=== PATIENT | male | born 1945 | race Caucasian/White ===

== ENCOUNTER → 2017-02-24 | Outpatient (CLI) | payer MEDICARE, BC ==
--- NOTE | 2017-02-24 10:51 | RAD ---
Bilateral feet, 6 views, 02/24/2017: History: Heel pain No fracture or dislocation is identified. There are mild degenerative changes at scattered interphalangeal joints and the first MTP joints bilaterally. No significant inferior calcaneal spurring is seen. Moderate arterial calcifications are present. IMPRESSION: 1. Mild scattered degenerative changes. 2. No acute bony abnormality is detected.
== END | disposition home or self-care (01) ==
LOC: DXRADRC 10:06
PROVIDERS: ATTEND Podiatrist Foot & Ankle Surgery
DX: M19.072 Primary osteoarthritis, left ankle and foot (principal); M19.071 Primary osteoarthritis, right ankle and foot
CPT/HCPCS: 73630

== ENCOUNTER 2020-03-30 15:14 | Emergency (ER) | payer BC, MEDICARE, OTHER ==
[~2020-03-30] VITALS: Ht 180.3 cm; Wt 89.5 kg
[2020-03-30 15:35] VITALS: BP 108/71
[2020-03-30 16:56] LABS: BASO % 1 % (0-3); EOS # 0.1 x10^3/uL (0.0-0.7); EOS % 4 % (0-3); HEMATOCRIT 36.4 % (39.0-53.0); HEMOGLOBIN 12.6 g/dL (13.0-17.5); LYMPH # 0.3 x10^3/uL (1.0-4.8); LYMPH % 9 % (24-48); MEAN CORPUSCULAR HEMOGLOBIN 36 pg (25-35); MEAN CORPUSCULAR HGB CONC 35 g/dL (31-37); MEAN CORPUSCULAR VOLUME 104 fL (79-100); MONO # 0.8 x10^3/uL (0.0-1.1); MONO % 22 % (0-9); NEUT # 2.2 x10^3uL (1.8-7.7); NEUT % 64 % (31-73); PLATELET COUNT 83 x10^3/uL (140-400); RED BLOOD COUNT 3.49 x10^6/uL (4.30-5.70); RED CELL DISTRIBUTION WIDTH 14.2 % (11.5-14.5); WHITE BLOOD COUNT 3.5 x10^3/uL (4.0-11.0)
[2020-03-30 17:04] LABS: CALCIUM 8.1 mg/dL (8.5-10.1); CREATININE 1.6 mg/dL (0.7-1.3); GFR 42.1; POTASSIUM 3.9 mmol/L (3.5-5.1)
[2020-03-30] MEDS ORDERED: OXYMETAZOLINE 0.05% NASAL SPRAY 30ML BOTTLE. NS ONE ×2 (17:07→17:15)
[2020-03-30 17:10] LABS: ALBUMIN 3.6 g/dL (3.4-5.0); ALBUMIN/GLOBULIN RATIO 1.1 (1.0-1.7); MAGNESIUM 1.7 mg/dL (1.8-2.4); TOTAL BILIRUBIN 0.5 mg/dL (0.2-1.0)
--- NOTE | 2020-03-30 17:17 | PHYS DOC ---
Past History Past Medical History: Hypertension (MIKI STONE DO) Past Medical History: Pneumonia (GÓMEZ NIELSEN MD) Past Surgical History: Other Additional Past Surgical Histo: stents, right knee sx (MIKI STONE DO) Past Surgical History: Knee Replacement (GÓMEZ NIELSEN MD) Alcohol Use: None (MIKI STONE DO) General Adult EDM: Chief Complaint: FEVER HPI: HPI: Patient is a 75-year-old male who presented to ER today for evaluation of fever and chills for the last 3 days. Patient also complained of body ache and dry cough. Patient denies any chest pain, no trouble breathing, no headache, no abdominal pain, no nausea vomiting. Patient has been taking Tylenol Motrin at home to control her temperature but he continues have a fever. Patient denies being exposed to anybody who tested positive COVID-19. Patient has history hypertension and history of coronary disease, denies history of diabetes. Is a smoker. (MIKI STONE DO) Review of Systems: Review of Systems: Constitutional: Positive for fever and chill Eyes: Denies change in visual acuity HENT: Denies nasal congestion or sore throat Respiratory: Positive for cough cough , no shortness of breath Cardiovascular: Denies chest pain or edema GI: Denies abdominal pain, nausea, vomiting, bloody stools or diarrhea : Denies dysuria Musculoskeletal: Positive for body ache and joint pain Integument: Denies rash Neurologic: Denies headache, focal weakness or sensory changes Endocrine: Denies polyuria or polydipsia Lymphatic: Denies swollen glands Psychiatric: Denies depression or anxiety (MIKI STONE DO) Heart Score: Risk Factors: Risk Factors: DM, Current or recent (<one month) smoker, HTN, HLP, family history of CAD, obesity. Risk Scores: Score 0 - 3: 2.5% MACE over next 6 weeks - Discharge Home Score 4 - 6: 20.3% MACE over next 6 weeks - Admit for Clinical Observation Score 7 - 10: 72.7% MACE over next 6 weeks - Early Invasive Strategies (MIKI STONE DO) Current Medications: Current Meds: Current Medications Medications (Trade) Dose Ordered Sig/Irving Start Time Stop Time Status Last Admin Dose Admin Oxymetazoline HCl (Afrin) 100 spray STK-MED ONCE 03/30/20 17:07 7/11/20 17:07 DC (MIKI STONE DO) Allergies: Allergies: Allergies Coded Allergies Type Severity Reaction Last Updated Verified amoxicillin Allergy Unknown 03/30/20 Yes (MIKI STONE DO) Physical Exam: PE: Constitutional: Well developed, well nourished, no acute distress, non-toxic appearance. [] HENT: Normocephalic, atraumatic, bilateral external ears normal, oropharynx moist, no oral exudates, nose normal. [] Eyes: PERRLA, EOMI, conjunctiva normal, no discharge. [] Neck: Normal range of motion, no tenderness, supple, no stridor. [] Cardiovascular:Heart rate regular rhythm, no murmur [] Lungs & Thorax: Bilateral breath sounds clear to auscultation [] Abdomen: Bowel sounds normal, soft, no tenderness, no masses, no pulsatile mass es. [] Skin: Warm, dry, no erythema, no rash. [] Back: No tenderness, no CVA tenderness. [] Extremities: No tenderness, no cyanosis, no clubbing, ROM intact, no edema. [] Neurologic: Alert and oriented X 3, normal motor function, normal sensory function, no focal deficits noted. [] Psychologic: Affect normal, judgement normal, mood normal. [] (MIKI STONE DO) Current Patient Data: Labs: Laboratory Tests Test 03/30/20 16:40 White Blood Count 3.5 x10^3/uL (4.0-11.0) L Red Blood Count 3.49 x10^6/uL (4.30-5.70) L Hemoglobin 12.6 g/dL (13.0-17.5) L Hematocrit 36.4 % (39.0-53.0) L Mean Corpuscular Volume 104 fL (79-100) H Mean Corpuscular Hemoglobin 36 pg (25-35) H Mean Corpuscular Hemoglobin Concent 35 g/dL (31-37) Red Cell Distribution Width 14.2 % (11.5-14.5) Platelet Count 83 x10^3/uL (140-400) L Neutrophils (%) (Auto) 64 % (31-73) Lymphocytes (%) (Auto) 9 % (24-48) L Monocytes (%) (Auto) 22 % (0-9) H Eosinophils (%) (Auto) 4 % (0-3) H Basophils (%) (Auto) 1 % (0-3) Neutrophils # (Auto) 2.2 x10^3uL (1.8-7.7) Lymphocytes # (Auto) 0.3 x10^3/uL (1.0-4.8) L Monocytes # (Auto) 0.8 x10^3/uL (0.0-1.1) Eosinophils # (Auto) 0.1 x10^3/uL (0.0-0.7) Basophils # (Auto) 0.0 x10^3/uL (0.0-0.2) Sodium Level 138 mmol/L (136-145) Potassium Level 3.9 mmol/L (3.5-5.1) Chloride Level 101 mmol/L (98-107) Carbon Dioxide Level 29 mmol/L (21-32) Anion Gap 8 (6-14) Blood Urea Nitrogen 17 mg/dL (8-26) Creatinine 1.6 mg/dL (0.7-1.3) H Estimated GFR (Cockcroft-Gault) 42.1 BUN/Creatinine Ratio 11 (6-20) Glucose Level 128 mg/dL (70-99) H Lactic Acid Level 1.0 mmol/L (0.4-2.0) Calcium Level 8.1 mg/dL (8.5-10.1) L Magnesium Level 1.7 mg/dL (1.8-2.4) L Total Bilirubin 0.5 mg/dL (0.2-1.0) Aspartate Amino Transferase (AST) 34 U/L (15-37) Alanine Aminotransferase (ALT) 36 U/L (16-63) Alkaline Phosphatase 60 U/L (46-116) Total Protein 7.0 g/dL (6.4-8.2) Albumin 3.6 g/dL (3.4-5.0) Albumin/Globulin Ratio 1.1 (1.0-1.7) Vital Signs: Vital Signs Date Time Temp Pulse Resp B/P (MAP) Pulse Ox O2 Delivery O2 Flow Rate FiO2 03/30/20 15:35 99.2 84 18 108/71 (83) 95 (MIKI STONE DO) EKG: EKG: [] (MIKI STONE DO) Radiology/Procedures: Radiology/Procedures: [] (MIKI STONE DO) Radiology/Procedures: [address], [place] [address] IMAGING REPORT Signed PATIENT: EVETTE DINEROOUNT: [id number] : 1945 LOCATION: ER AGE: 75 SEX: M EXAM STATUS: REG ER ORD. PHYSICIAN: MIKI STONE DO REASON: COUGH, FEVER FOR 3 DAYS PROCEDURE: CHEST AP ONLY EXAM: CHEST AP ONLY INDICATION: Reason: COUGH, FEVER FOR 3 DAYS / Spl. Instructions: / History: . TECHNIQUE: Single view COMPARISON: None FINDINGS: The heart size is normal. The great vessels appear unremarkable. There is no hilar or mediastinal mass. Lungs show hazy reticular opacity at the left lung base. There is no pleural effusion or pneumothorax. There are no significant osseous abnormalities. IMPRESSION: Hazy reticular opacity in the left lung base, suspicious for pneumonia. Electronically signed by: Juan Carlos Montano MD (03/30/2020 6:05 PM) [facility] [place] DICTATED AND SIGNED BY: JUAN CARLOS MONTANO MD DATE: 03/30/201804 CC: LANRE GRAHAM MD; MIKI STONE DO ~ (GÓMEZ NIELSEN MD) Course & Med Decision Making: Course & Med Decision Making Pertinent Labs and Imaging studies reviewed. (See chart for details) [] (MIKI STONE DO) Course & Med Decision Making See Dr. Stone note for details. Pt. take a Zithromax 250 a day for 5 days. Patient get adequate rest. Patient self isolate. When out must wear a mask covering nose and mouth. Reviewed with patient his previous CT findings which showed infiltrate/scarring in same location in 2007. Explained patient this may be persistent scarring or other pathology. After completing a course of antibiotics would get a CT with contrast to for further define area of infiltrate/scarring left lower lobe. Patient take Tylenol ibuprofen for fever and discomfort. Patient push fluids. Will treat with Zithromax in the case that this may be atypical outpatient pneumonia. However suspect this is more of a viral presentation due to the low white count. Patient follow-up pending COVID testing. Patient to have Dr. Smith review ED work-up and labs. Patient return if any concerns. Patient to use MDI 2 puffs 4 times a day. Return if any significant changes in symptoms. Consider home Oxygen Sat. finger monitor. Explained to pt he is in a high risk group for severe illness with COVID infection. Must monitor closely. ( Currently pt. sat 98-100 % on room air. , pulse rates in 80's/) Impression: 1. History of fever 2. Left lower lobe infiltrate/pneumonia/scaring ( Also present on CT of 2007) 3. Viral syndrome 4. Low white count 3.5 with 15 Bands 5. Anemia 12.6 hemoglobin with macrocytic hyperchromic indices and thrombocytopenia 6. Elevated Creat. 1.6 (GÓMEZ NIELSEN MD) Dragon Disclaimer: Dragon Disclaimer: This electronic medical record was generated, in whole or in part, using a voice recognition dictation system. (MIKI STONE DO) Departure Departure: Impression: Primary Impression: Fever Condition: STABLE Referrals: LANRE GRAHAM MD (PCP) Scripts Azithromycin (ZITHROMAX) 250 Mg Tablet 250 MG PO DAILY for ANTI-BIOTIC for 5 Days, #5 TAB 0 Refills Prov: GÓMEZ NIELSEN MD 03/30/20 Justification of Admission: Justification of Admission: Justification of Admission Dx: N/A (MIKI STONE DO) Justification of Admission Dx: N/A (GÓMEZ NIELSEN MD) Dragon Disclaimer This chart was dictated in whole or in part using Voice Recognition software in a busy, high-work load, and often noisy Emergency Department environment. It may contain unintended and wholly unrecognized errors or omissions. (GÓMEZ NIELSEN MD) Dragon Disclaimer This chart was dictated in whole or in part using Voice Recognition software in a busy, high-work load, and often noisy Emergency Department environment. It may contain unintended and wholly unrecognized errors or omissions. (GÓMEZ NIELSEN MD) MIKI STONE DO Mar 30, 2020 17:17 GÓMEZ NIELSEN MD Mar 30, 2020 18:23
[2020-03-30 17:45] LABS: % BANDS 15 % (0-9); % EOS 4 % (0-5); % LYMPHS 7 % (24-48); % MONOS 17 % (0-10); % SEGS 57 % (35-66); PLT ESTIMATE DECREASED (ADEQUATE)
[2020-03-30 17:46] LABS: POLYCHROMASIA SLIGHT
[2020-03-30 18:05] LABS: BACTERIA,URINE FEW /HPF (0-FEW); BILIRUBIN,URINE NEG (NEG); CLARITY,URINE HAZY; COLOR,URINE AMBER; GLUCOSE,URINE NEG (NEG); NITRITE,URINE NEG (NEG); RBC,URINE >40 /HPF (0-2); SQUAMOUS EPITHELIAL CELL,UR OCC /LPF; UROBILINOGEN,URINE 0.2 mg/dL (0.2 mg/dL)
--- NOTE | 2020-03-30 18:08 | RAD ---
EXAM: CHEST AP ONLY INDICATION: Reason: COUGH, FEVER FOR 3 DAYS / Spl. Instructions: / History: . TECHNIQUE: Single view COMPARISON: None FINDINGS: The heart size is normal. The great vessels appear unremarkable. There is no hilar or mediastinal mass. Lungs show hazy reticular opacity at the left lung base. There is no pleural effusion or pneumothorax. There are no significant osseous abnormalities. IMPRESSION: Hazy reticular opacity in the left lung base, suspicious for pneumonia. Electronically signed by: Francisco Montano MD (03/30/2020 6:05 PM) [facility] [place]
[2020-03-30] MEDS ORDERED: ALBUTEROL SULFATE 8GM INHALER. INH ONE (18:30)
[2020-03-30] MEDS ORDERED: AZIT250T PO (18:34)
[2020-03-30] MEDS ORDERED: AZITHROMYCIN 250 MG TABLET. PO ONE (19:00)
== END 2020-03-30 18:48 | disposition home or self-care (01) ==
LOC: ER 15:14
DX: R50.9 Fever, unspecified (principal); Z20.828 Contact with and (suspected) exposure to other viral communicable diseases; D72.829 Elevated white blood cell count, unspecified; D64.9 Anemia, unspecified; R94.4 Abnormal results of kidney function studies; I10 Essential (primary) hypertension; Z88.1 Allergy status to other antibiotic agents
CPT/HCPCS: 36415; 71045; 80053; 81001; 83605; 83735; 85007; 85025; 85610; 85730; 87040; 99284; J7613; U0003

== ENCOUNTER 2020-04-02 13:42 | Inpatient (IN) | payer MEDICARE ==
[~2020-04-02] VITALS: Ht 180.3 cm; Wt 90.7 kg
[~2020-04-02 13:42] MED LIST: AZIT250T PO
[2020-04-02] MEDS ORDERED: 0.9 % SODIUM CHLORIDE 10 ML DISP.SYRIN. IV PRN (14:15)
[2020-04-02 14:43] LABS: BASO % 0 % (0-3); EOS # 0.2 x10^3/uL (0.0-0.7); EOS % 2 % (0-3); HEMATOCRIT 34.8 % (39.0-53.0); HEMOGLOBIN 11.8 g/dL (13.0-17.5); LYMPH # 0.5 x10^3/uL (1.0-4.8); LYMPH % 5 % (24-48); MEAN CORPUSCULAR HEMOGLOBIN 36 pg (25-35); MEAN CORPUSCULAR HGB CONC 34 g/dL (31-37); MEAN CORPUSCULAR VOLUME 105 fL (79-100); MONO # 1.5 x10^3/uL (0.0-1.1); MONO % 16 % (0-9); NEUT # 7.2 x10^3uL (1.8-7.7); NEUT % 77 % (31-73); PLATELET COUNT 103 x10^3/uL (140-400); RED BLOOD COUNT 3.33 x10^6/uL (4.30-5.70); RED CELL DISTRIBUTION WIDTH 14.3 % (11.5-14.5); WHITE BLOOD COUNT 9.3 x10^3/uL (4.0-11.0)
[2020-04-02] MEDS: IV NORMAL SALINE 1,000ML 2,250 ML IV SCH ×3 (14:45→19:57)
--- NOTE | 2020-04-02 14:45 | PHYS DOC ---
Past History Past Medical History: CAD, Diabetes, Hypertension Past Surgical History: Other Additional Past Surgical Histo: cardiac stents Alcohol Use: Occasionally Adult General Chief Complaint Chief Complaint: SHORTNESS OF BREATH HPI HPI Patient is a 75 year old male who presents with complaint of shortness of breath. The patient notes that he has been having worsening shortness of breath over the past 5 days. He was seen in the emergency department on March 30, 2020. His work-up showed evidence of a left lower lobe pneumonia. Patient underwent COVID testing at that time and was found to be negative. He states despite home treatment with antibiotic and inhaler he is having worsening symptoms. States that he also is having tightness to the chest and difficulty breathing with mild exertion. Cough is been nonproductive. He has thus come back to the emergency department because of his worsening symptoms. Denies vomiting or diarrhea. Is feeling significant fatigue and increased work of breathing currently. Review of Systems Review of Systems Constitutional: Fever, chills, fatigue [] Eyes: Denies change in visual acuity, redness, or eye pain [] HENT: Denies nasal congestion or sore throat [] Respiratory: Cough, chest tightness, shortness of breath [] Cardiovascular: Intermittent chest pain [] GI: Denies abdominal pain, nausea, vomiting, bloody stools or diarrhea [] : Denies dysuria or hematuria [] Musculoskeletal: Denies back pain or joint pain [] Integument: Denies rash or skin lesions [] Neurologic: Denies headache, focal weakness or sensory changes [] All other systems were reviewed and found to be within normal limits, except as documented in this note. Current Medications Current Medications Current Medications Medications (Trade) Dose Ordered Sig/Irving Start Time Stop Time Status Last Admin Dose Admin Sodium Chloride 2,250 ml @ 750 mls/hr Q3H 04/02/20 14:08 Sodium Chloride (Normal Saline Flush) 10 ml QSHIFT PRN 04/02/20 14:15 Allergies Allergies Allergies Coded Allergies Type Severity Reaction Last Updated Verified amoxicillin Allergy Unknown 04/02/20 Yes Physical Exam Physical Exam Constitutional: Alert, afebrile, appears in moderate respiratory distress. [] HENT: Normocephalic, atraumatic, bilateral external ears normal, oropharynx moist, no oral exudates, nose normal. [] Eyes: PERRLA, EOMI, conjunctiva normal, no discharge. [] Neck: Normal range of motion, no tenderness, supple, no stridor. [] Cardiovascular: Tachycardia, regular rhythm, no murmur [] Lungs & Thorax: Mildly decreased air movement bilaterally, rhonchi bilaterally [] Abdomen: Bowel sounds normal, soft, no tenderness, no masses, no pulsatile masses. [] Skin: Warm, dry, no erythema, no rash. [] Back: No tenderness, no CVA tenderness. [] Extremities: No tenderness, no cyanosis, no clubbing, ROM intact, no edema. [] Neurologic: Alert and oriented X 3, normal motor function, normal sensory function, no focal deficits noted. [] Current Patient Data Vital Signs Vital Signs Date Time Temp Pulse Resp B/P (MAP) Pulse Ox O2 Delivery O2 Flow Rate FiO2 04/02/20 13:55 99.4 105 28 107/63 (78) 94 Room Air Lab Results Laboratory Tests Test 04/02/20 14:15 04/02/20 15:30 White Blood Count 9.3 x10^3/uL Red Blood Count 3.33 x10^6/uL Hemoglobin 11.8 g/dL Hematocrit 34.8 % Mean Corpuscular Volume 105 fL Mean Corpuscular Hemoglobin 36 pg Mean Corpuscular Hemoglobin Concent 34 g/dL Red Cell Distribution Width 14.3 % Platelet Count 103 x10^3/uL Neutrophils (%) (Auto) 77 % Lymphocytes (%) (Auto) 5 % Monocytes (%) (Auto) 16 % Eosinophils (%) (Auto) 2 % Basophils (%) (Auto) 0 % Neutrophils # (Auto) 7.2 x10^3uL Lymphocytes # (Auto) 0.5 x10^3/uL Monocytes # (Auto) 1.5 x10^3/uL Eosinophils # (Auto) 0.2 x10^3/uL Basophils # (Auto) 0.0 x10^3/uL Platelet Estimate Pending D-Dimer ([place]) 2.31 mg/L Sodium Level 137 mmol/L Potassium Level 3.4 mmol/L Chloride Level 101 mmol/L Carbon Dioxide Level 25 mmol/L Anion Gap 11 Blood Urea Nitrogen 21 mg/dL Creatinine 1.7 mg/dL Estimated GFR (Cockcroft-Gault) 39.3 BUN/Creatinine Ratio 12 Glucose Level 264 mg/dL Lactic Acid Level 1.9 mmol/L Calcium Level 8.0 mg/dL Total Bilirubin 0.5 mg/dL Aspartate Amino Transf (AST/SGOT) 30 U/L Alanine Aminotransferase (ALT/SGPT) 42 U/L Alkaline Phosphatase 72 U/L Troponin I Quantitative < 0.017 ng/mL Total Protein 6.2 g/dL Albumin 3.1 g/dL Albumin/Globulin Ratio 1.0 Urine Collection Type Void Urine Color Mar[place]i Urine Clarity Cloudy Urine pH 5.0 Urine Specific [place] 1.025 Urine Protein 100 mg/dl Urine Glucose (UA) 100 mg/dL Urine Ketones (Stick) Trace mg/dL Urine Blood Large Urine Nitrite Neg Urine Bilirubin Neg Urine Urobilinogen Dipstick 0.2 mg/dL Urine Leukocyte Esterase Neg Urine RBC 11-20 /HPF Urine WBC 1-4 /HPF Urine Bacteria Few /HPF Urine Hyaline Casts Few /HPF Urine Mucus Slight /LPF Urine Yeast Present /HPF Current Medications Medications (Trade) Dose Ordered Sig/Irving Route PRN Reason Start Time Stop Time Status Last Admin Dose Admin Sodium Chloride (Normal Saline Flush) 10 ml QSHIFT PRN IV AFTER MEDS AND BLOOD DRAWS 04/02/20 14:15 Sodium Chloride 2,250 ml @ 750 mls/hr Q3H IV 04/02/20 14:08 04/02/20 14:45 Ceftriaxone Sodium 1 gm/ Sodium Chloride 50 ml @ 100 mls/hr 1X ONCE IV 04/02/20 16:15 04/02/20 16:44 UNV Levofloxacin/ Dextrose 150 ml @ 100 mls/hr 1X ONCE IV 04/02/20 16:15 04/02/20 17:44 UNV Methylprednisolone Sodium Succinate (SOLU-Medrol 125MG VIAL) 125 mg 1X ONCE IV 04/02/20 16:15 04/02/20 16:16 UNV EKG EKG Interpreted by me: Heart rate 81, sinus rhythm, frequent PACs, leftward axis, no acute ST/T wave abnormalities present [] Radiology/Procedures Radiology/Procedures [address] [address] IMAGING REPORT Signed PATIENT: EVETTE DINERO WACCOUNT: [id number] : 1945 LOCATION: ER AGE: 75 SEX: M EXAM STATUS: REG ER ORD. PHYSICIAN: ALCIDES JAMES MD REASON: shortness of breath PROCEDURE: PORTABLE CHEST 1V PORTABLE CHEST 1V History: Reason: shortness of breath / Spl. Instructions: / History: Comparison: March 30, 2020 Findings: Increased patchy left mid and basilar opacities. No pleural effusion. No pneumothorax. Normal heart size. Impression: 1. Increased patchy left mid and basilar opacities, may represent atelectasis and/or developing consolidations. If persistent clinical concern, PA and lateral view the chest can better assess. Electronically signed by: Uri Medrano DO (04/02/2020 2:49 PM) [id number] DICTATED AND SIGNED BY: URI MEDRANO DO DATE: 04/02/20 1449 CC: ALCIDES JAMES MD; LANRE GRAHAM MD ~ [] Course & Med Decision Making Course & Med Decision Making Pertinent Labs and Imaging studies reviewed. (See chart for details) IV access was obtained and patient was started on IV fluids. Chest x-ray shows interval worsening of haziness representing possible worsening consolidation in the left lower lobe. I believe that this is consistent with a worsening community-acquired pneumonia. The patient was found to have an elevated d-dimer level. This is likely an acute reactant to the patient's worsening infection. At this time we are unable to perform a CT angiogram due to the patient's elevated creatinine level. If necessary, the patient can have a VQ scan performed to further evaluate this if necessary. To the patient's continued shortness of breath, as well as failure of outpatient treatment, the patient will need admission to the hospital for further care. I spoke with richelle Tamayo, who is agreed to accept care patient in hospital. [] Dragon Disclaimer Dragon Disclaimer This electronic medical record was generated, in whole or in part, using a voice recognition dictation system. Departure Departure: Impression: Primary Impression: Community acquired bacterial pneumonia Additional Impressions: Sepsis Acute renal insufficiency Hyperglycemia Elevated d-dimer Disposition: HOME/RESIDENCE PRIOR TO ADM Condition: STABLE Referrals: LANRE GRAHAM MD (PCP) Justification of Admission: Justification of Admission: Justification of Admission Dx: N/A Problem Qualifiers Additional Impressions: Sepsis Sepsis type: sepsis due to unspecified organism Sepsis acute organ dysfunction status: unspecified Qualified Codes: A41.9 - Sepsis, unspecified organism ALCIDES JAMES MD Apr 02, 2020 14:45
[2020-04-02 14:49] LABS: CREATININE 1.7 mg/dL (0.7-1.3); GFR 39.3; POTASSIUM 3.4 mmol/L (3.5-5.1)
--- NOTE | 2020-04-02 14:52 | RAD ---
PORTABLE CHEST 1V History: Reason: shortness of breath / Spl. Instructions: / History: Comparison: March 30, 2020 Findings: Increased patchy left mid and basilar opacities. No pleural effusion. No pneumothorax. Normal heart size. Impression: 1. Increased patchy left mid and basilar opacities, may represent atelectasis and/or developing consolidations. If persistent clinical concern, PA and lateral view the chest can better assess. Electronically signed by: Uri Medrano DO (04/02/2020 2:49 PM) [id number]
[2020-04-02 15:03] LABS: ALBUMIN 3.1 g/dL (3.4-5.0); TOTAL BILIRUBIN 0.5 mg/dL (0.2-1.0); TOTAL PROTEIN 6.2 g/dL (6.4-8.2)
--- NOTE | 2020-04-02 15:40 | EKG ---
[address] [address] Test Date: 2020-04-02 Test Time: 16:28:45 Pat Name: EVETTE DINERO Department: Room: Gender: M Television Presenter: : 1945 Requested By: ALCIDES JAMES Order Number: [id number] Reading MD: Measurements Intervals Dana Rate: 81 P: 35 NV: 166 QRS: -6 QRSD: 90 T: 18 QT: 366 QTc: 426 Interpretive Statements SINUS RHYTHM ATRIAL PREMATURE COMPLEX(ES) LEFTWARD AXIS OTHERWISE NORMAL ECG RI6.02 Compared to ECG 04/02/2020 16:10:36 Left-axis deviation now present Sinus tachycardia no longer present
[2020-04-02] MEDS ORDERED: methylPREDNISolone SOD SUCC PF 125 MG/2 ML VIAL. IV ONE (16:15)
[2020-04-02 16:16] LABS: BACTERIA,URINE FEW /HPF (0-FEW); BILIRUBIN,URINE NEG (NEG); CLARITY,URINE CLOUDY; COLOR,URINE AMBER; GLUCOSE,URINE 100 mg/dL (NEG); NITRITE,URINE NEG (NEG); UROBILINOGEN,URINE 0.2 mg/dL (0.2 mg/dL)
[2020-04-02 16:17] LABS: HYALINE CASTS, URINE FEW /HPF; YEAST,URINE PRESENT /HPF
[2020-04-02] MEDS ORDERED: methylPREDNISolone SOD SUCC PF 125 MG/2 ML VIAL. ONE (16:25)
[2020-04-02] MEDS ORDERED: IV NORMAL SALINE 50ML 50 ML ONE (16:25)
[2020-04-02] MEDS ORDERED: cefTRIAXone SODIUM 1 GM VIAL ONE (16:25)
[2020-04-02] MEDS ORDERED: ONDANSETRON PF 4 MG/2 ML VIAL. IVP PRN (16:30)
[2020-04-02] MEDS ORDERED: ACETAMINOPHEN 325 MG TABLET PO PRN (16:30)
[2020-04-02 18:14] LABS: % BANDS 9 % (0-9); % LYMPHS 8 % (24-48); % MONOS 19 % (0-10); % SEGS 64 % (35-66); PLT ESTIMATE DECREASED (ADEQUATE)
[2020-04-02 19:09] VITALS: BP 102/62
[2020-04-02] MEDS: IV NORMAL SALINE 1,000ML 1,000 ML IV SCH (19:55)
[2020-04-02] MEDS ORDERED: ALBUTEROL SULFATE 2.5 MG/3 ML NEBU. NEB SCH (20:00)
[2020-04-02] MEDS ORDERED: PRAV80TA2 PO (20:05)
[2020-04-02] MEDS ORDERED: ASPI325T8 PO (20:05)
[2020-04-02] MEDS ORDERED: ENAL20TA PO (20:05)
[2020-04-02] MEDS ORDERED: MULT-505 PO (20:05)
[2020-04-02] MEDS ORDERED: METO-239 PO (20:05)
[2020-04-02] MEDS ORDERED: MESA800T9 PO (20:05)
[2020-04-02] MEDS ORDERED: ALBUTEROL SULFATE 8GM INHALER. INH PRN (21:00)
[2020-04-02] MEDS: MESALAMINE 400 MG CAP.DRTAB. PO SCH (21:02)
[2020-04-02] MEDS: methylPREDNISolone SOD SUCC PF 125 MG/2 ML VIAL. IV SCH (21:03)
[2020-04-02] MEDS: LACTOBACILLUS RHAMNOSUS GG 1 CAPSULE. PO SCH (21:03)
[2020-04-02 21:23] VITALS: BP 101/70
[2020-04-02 21:46] VITALS: BP 99/68
--- NOTE | 2020-04-02 22:27 | HP ---
ADMIT DATE: 04/02/2020 ATTENDING PHYSICIAN: Dr. Boudreaux. CHIEF COMPLAINT: Shortness of breath. HISTORY OF PRESENT ILLNESS: The patient is a very pleasant 75-year-old gentleman, retired now, who has had shortness of breath for the last 5 days. This past Wednesday, 4 days ago, he was in the Emergency Room Department. He had evidence of a left lower lobe pneumonia. He underwent COVID testing at that time, was found to be coronavirus negative. He was sent home with Zithromax orally and an inhaler. He is not any better. He is still wheezing. He has exertional dyspnea, tightness in the chest and difficulty breathing. He states it is a burning sensation that starts anteriorly and radiates to his back. Cough has been nonproductive. He came back to the Emergency Room. He has not been febrile. He is a little bit clammy. He has not had any chills. A repeat chest x-ray today showed a slightly worsening in consolidation with infiltrate in the left lower lobe. 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 He was given IV Levaquin and Rocephin and a dose of steroids, which showed marked improvement. He will be admitted then with community-acquired pneumonia, non-COVID related, refractory to oral antibiotics. PAST MEDICAL HISTORY: Significant for coronary artery disease; in 2007, he had a catheterization and resulted in 2 cardiac stents. He has essential hypertension and diet-controlled diabetes mellitus. ALLERGIES: He has allergies AMOXICILLIN. MEDICATIONS: Currently, he was taking the Zithromax prescribed this past Wednesday. SOCIAL HISTORY: He is a nonsmoker. FAMILY HISTORY: Father of complications of emphysema at age 70. Mom of heart disease, she was 88. SOCIAL HISTORY: He is and lives with his . He is retired from the cement factory. REVIEW OF SYSTEMS: Significant for the dyspnea with minimal exertion. He has had some pleuritic type chest pain. He has had low-grade fevers, some sweats. No hemoptysis. He denied any nausea, vomiting, diarrhea, or chest pain. All other systems reviewed and turned to be negative. PHYSICAL EXAMINATION: GENERAL: When I saw the patient, this is a pleasant gentleman who was alert and oriented. INITIAL VITAL SIGNS: Showed a blood pressure of 109/71; his pulse was 85 and regular, respiratory rate 22, mildly labored; temperature 99.5 degrees Fahrenheit. Room air saturation 96% on room air. HEENT: Head is without trauma. Pupils are reactive. Sclerae nonicteric. The oropharynx is clear. NECK: Supple, no bruits identified. LUNGS: Diminished breath sounds at the bases with minimal rhonchi. CARDIOVASCULAR: Showed regular heart tones. No obvious gallops. Peripheral pulses are palpable and full. ABDOMEN: Soft, scaphoid, nontender, no organomegaly. Bowel sounds are hypoactive. EXTREMITIES: Showed no cyanosis or edema. SKIN: Somewhat clammy. NEUROLOGIC: Speech is fluent. Focally intact. No deficits. PERTINENT LABORATORY STUDIES: His hemoglobin today is 11.8 g/dL, white count is 9300, platelets are at 103,000. Nonfasting blood sugar 264 mg/dL. Sodium 137, potassium 3.4 mEq, creatinine is 1.7 mg/dL. Chest x-ray as noted. ASSESSMENT: 1. A 75-year-old gentleman with left lower lobe pneumonia, refractory to outpatient care. 2. He has silicosis related to his employment for those many years. 3. Pleurisy. 4. Type 2 diabetes. 5. Hypertension, currently normotensive. 6. Coronary artery disease with previous stents. PLAN: 1. Admit to the ICU. 2. He had a repeat COVID swab pending and he is still under COVID precautions. 3. Intravenous Levaquin with Rocephin. 4. Methylprednisolone to help with symptoms. 5. Nebulizer therapy. 6. Diabetic diet as tolerated. 7. Monitor blood sugars. JERRELL BOUDREAUX MD DR: RIVERA/deacon JOB#: [id number] / [id number] Kym Taylor
[2020-04-02 22:42] VITALS: BP 97/68
[2020-04-02 23:41] VITALS: BP 95/64
[2020-04-03] VITALS (10 sets, daily range): BP systolic 97–124; BP diastolic 62–80
[2020-04-03] MEDS: IV NORMAL SALINE 1,000ML 1,000 ML IV SCH ×2 (03:36→08:28)
[2020-04-03] MEDS: methylPREDNISolone SOD SUCC PF 125 MG/2 ML VIAL. IV SCH ×3 (05:39→21:03)
[2020-04-03] MEDS ORDERED: BUDESONIDE 0.5 MG/2 ML NEBU NEB SCH (09:15)
[2020-04-03] MEDS ORDERED: FLUTICASONE/VILANTEROL 100/25 INHALER. INH SCH (10:00)
[2020-04-03] MEDS ORDERED: METOPROLOL SUCC 24HR ER 25 MG TAB.ER.24H. PO SCH (10:00)
[2020-04-03] MEDS: LISINOPRIL 20 MG TABLET PO SCH ×2 (10:00→21:03)
[2020-04-03] MEDS: LISINOPRIL 5 MG TABLET. PO SCH ×2 (10:00→21:03)
[2020-04-03] MEDS ORDERED: BUDESONIDE 0.5 MG/2 ML NEBU ONE (10:07)
[2020-04-03] MEDS: MESALAMINE 400 MG CAP.DRTAB. PO SCH ×4 (10:11→21:00)
[2020-04-03] MEDS: LACTOBACILLUS RHAMNOSUS GG 1 CAPSULE. PO SCH ×2 (10:11→21:03)
[2020-04-03] MEDS: ATORVASTATIN CALCIUM 20 MG TABLET PO SCH (10:11)
[2020-04-03] MEDS: ASPIRIN 325 MG TABLET PO SCH (10:11)
[2020-04-03] MEDS: MULTIVITAMIN with MINERAL TABLET. PO SCH (10:11)
--- NOTE | 2020-04-03 10:21 | RAD ---
CT CHEST WO CONTRAST Indication: Shortness of air Technique: Noncontrast CT imaging was performed of the chest, multiplanar reconstruction images submitted. One or more of the following individualized dose reduction techniques were utilized for this examination: 1. Automated exposure control 2. Adjustment of the mA and/or kV according to patient size 3. Use of iterative reconstruction technique. Comparison: June 19, 2008 Findings: There is motion degradation. There is moderate to severe centrilobular emphysema. There is trace left pleural fluid near the base. There is coronary calcification. There is no pericardial fluid or pneumothorax. There is some linear atelectasis or fibrotic change of the lingula. There is also some patchy bilateral lower lobe atelectasis/infiltrate. The major airways are patent. Stomach is distended. Tubular ascending thoracic aorta is somewhat ectatic about 3.8 cm. There is borderline enlarged precarinal node about 1 cm short axis dimension, previously about 0.7 cm. IMPRESSION: 1. There is patchy bilateral lower lobe atelectasis/infiltrate, also lingular atelectasis or fibrotic change. There is emphysema. There is trace left pleural fluid. 2. There is coronary calcification. Tubular ascending thoracic aorta is somewhat ectatic about 3.8 cm. 3. Stomach is distended. Electronically signed by: Shola Xavier MD (04/03/2020 10:18 AM) [place] [id number]
[2020-04-03] MEDS: BUDESONIDE 0.5 MG/2 ML NEBU NEB SCH (19:51)
--- NOTE | 2020-04-03 20:41 | PN ---
DATE: 04/03/2020 SUBJECTIVE: The patient is sitting comfortably in his chair, in no apparent distress. He is generally feeling much better. He said he has received treatment this morning and apparently he was treated with steroids and Pulmicort by nebulizer and felt much improved. He feels that his symptoms have dramatically improved compared to yesterday. PHYSICAL EXAMINATION: GENERAL: When I examined him, he looked well and was clearly in no apparent respiratory distress. No pallor, jaundice, cyanosis or thyromegaly. No jugular venous distention. No limb edema. VITAL SIGNS: Her heart rate was 81, blood pressure was 111/70, temperature 97.4, respiratory rate was 15 and oxygen saturation was 95%. HEAD, EYES, EARS, NOSE AND THROAT: Normocephalic, atraumatic. NECK: Supple. HEART: Showed normal first and second heart sounds. No gallop or murmur. CHEST: Shows central trachea, equally reduced expansion, reduced air entry, vesicular sounds. I could not really appreciate any crepitation or rhonchi. ABDOMEN: Distended, soft, nontender. NEUROLOGIC: He is awake, alert, responding appropriately. All cranial nerves intact. He moves extremities without difficulty. He ambulates without assistance or assistive devices. His intake and output were incompletely recorded. LABORATORY DATA: Showed a white cell count of 9300, hemoglobin 11.8, hematocrit 34.8, MCV 105 and platelet count of 103,000. Serum sodium was 137, potassium 3.4, chloride 101, bicarbonate 25, anion gap of 11, BUN 21, creatinine was 1.7, estimated GFR was 39 mL per minute. His glucose at 264, lactic acid was 1.9, calcium was 8. Total bilirubin, AST, ALT, alkaline phosphatase were normal. Total protein was 6.2, albumin was 3.1. His D-dimer was 2.31, and urinalysis was essentially unremarkable. ASSESSMENT: 1. Left lower lobe pneumonia that has failed outpatient oral antibiotic treatment. 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 2. Left-sided pleuritic chest pain. 3. Type 2 diabetes mellitus. 4. Hypertension. 5. Coronary artery disease status post PCI with stent deployment. PLAN: To continue with IV antibiotic in the form of Levaquin and Rocephin. Continue with steroids, continue with nebulized treatment. Continue to monitor his blood sugar and adjust insulin as needed. Continue with pain management. So far, his blood cultures are negative. I will add Mucinex as well as Singulair. LENA QUEVEDO MD DR: AZALEA/deacon JOB#: [id number] / [id number]
[2020-04-03] MEDS ORDERED: MONTELUKAST 10 MG TABLET. PO SCH (21:00)
[2020-04-04] MEDS: methylPREDNISolone SOD SUCC PF 125 MG/2 ML VIAL. IV SCH ×2 (05:18→13:55)
[2020-04-04 06:00] VITALS: BP 114/74
[2020-04-04 06:22] LABS: BASO % 0 % (0-3); EOS % 0 % (0-3); HEMATOCRIT 33.9 % (39.0-53.0); HEMOGLOBIN 11.4 g/dL (13.0-17.5); LYMPH # 0.5 x10^3/uL (1.0-4.8); LYMPH % 4 % (24-48); MEAN CORPUSCULAR HEMOGLOBIN 36 pg (25-35); MEAN CORPUSCULAR HGB CONC 34 g/dL (31-37); MEAN CORPUSCULAR VOLUME 105 fL (79-100); MONO # 0.3 x10^3/uL (0.0-1.1); MONO % 3 % (0-9); NEUT # 10.1 x10^3uL (1.8-7.7); NEUT % 93 % (31-73); PLATELET COUNT 133 x10^3/uL (140-400); RED BLOOD COUNT 3.22 x10^6/uL (4.30-5.70); RED CELL DISTRIBUTION WIDTH 14.5 % (11.5-14.5); WHITE BLOOD COUNT 10.8 x10^3/uL (4.0-11.0)
[2020-04-04 06:27] LABS: ALBUMIN 2.8 g/dL (3.4-5.0); ALBUMIN/GLOBULIN RATIO 0.8 (1.0-1.7); CALCIUM 7.7 mg/dL (8.5-10.1); CREATININE 1.4 mg/dL (0.7-1.3); GFR 49.1; POTASSIUM 3.7 mmol/L (3.5-5.1); TOTAL BILIRUBIN 0.3 mg/dL (0.2-1.0); TOTAL PROTEIN 6.4 g/dL (6.4-8.2)
[2020-04-04] MEDS: BUDESONIDE 0.5 MG/2 ML NEBU NEB SCH (07:24)
[2020-04-04] MEDS: LACTOBACILLUS RHAMNOSUS GG 1 CAPSULE. PO SCH (08:15)
[2020-04-04] MEDS: MULTIVITAMIN with MINERAL TABLET. PO SCH (08:15)
[2020-04-04] MEDS: ATORVASTATIN CALCIUM 20 MG TABLET PO SCH (08:16)
[2020-04-04] MEDS: ASPIRIN 325 MG TABLET PO SCH (08:16)
[2020-04-04 08:25] VITALS: BP 105/60
[2020-04-04] MEDS: LISINOPRIL 5 MG TABLET. PO SCH (08:26)
[2020-04-04] MEDS: MESALAMINE 400 MG CAP.DRTAB. PO SCH (08:26)
[2020-04-04] MEDS: LISINOPRIL 20 MG TABLET PO SCH (08:26)
[2020-04-04 11:38] VITALS: BP 111/70
[2020-04-04 15:15] VITALS: BP 105/69
--- NOTE | 2020-04-04 16:55 | DS ---
DATE OF DISCHARGE: 04/04/2020 HOSPITAL COURSE: The patient is a 75-year-old male patient who was admitted with increasing shortness of breath that has been going on for the last 5 days prior to admission. Four days prior to admission he was seen in the Emergency Department. He had evidence of left lower lobe pneumonia. He underwent COVID testing at that time, he was found to be coronavirus negative. He was sent home on Zithromax orally with an inhaler; however, he did not get any better. He continued to wheeze and has exertional dyspnea, tightness in his chest and difficulty breathing. He stated burning sensation that starts anteriorly and radiates to his back. He was extensively evaluated in the Emergency Room, was started on IV Rocephin and Levaquin and steroids and was admitted with community-acquired pneumonia, COPD exacerbation. He did actually very well. He remained afebrile throughout his stay here and his white cell count was normal. So far, all his blood cultures are negative and as he felt better, has been up and about without difficulty, has no more chest pain, chest tightness or shortness of breath, a decision was made to discharge him home to continue treatment as an outpatient. PHYSICAL EXAMINATION: GENERAL: When I saw him this afternoon, he looked pale, but no jaundice, cyanosis or thyromegaly. No jugular venous distention. No limb edema. VITAL SIGNS: His heart rate was 72, blood pressure was 105/69, temperature 96.8, respiratory rate was 18 and oxygen saturation was 97%. HEAD, EYES, EARS, NOSE AND THROAT: Showed normocephalic, atraumatic. NECK: Supple. HEART: Showed normal first and second heart sounds. No gallop, rub or murmur. CHEST: Clear to auscultation. No crepitation or rhonchi. ABDOMEN: Distended, soft, nontender. NEUROLOGIC: He was awake, alert, responding appropriately. All cranial nerves intact. EXTREMITIES: He moves extremities without difficulty, ambulates without assistance or assistive devices. LABORATORY DATA: This morning showed a white cell count of 10,800, hemoglobin 11, hematocrit 33, MCV 105 and platelet count 233,000. Serum sodium was 140, potassium 3.7, chloride 105, bicarbonate 25, anion gap of 10, BUN 34, creatinine 1.4, estimated GFR was 49 mL per minute. His glucose was ____, calcium was 7.7. Total bilirubin, AST, ALT, alkaline phosphatase were normal. Total protein 6.4, albumin 2.8. His coronavirus by PCR was not detected. DISCHARGE MEDICATIONS: He was discharged home to continue on aspirin 325 mg once a day, enalapril 25 mg twice a day, mesalamine 800 mg 4 times a day. I changed his metoprolol to Cardizem CD 120 mg once a day, pravastatin 80 mg once a day, multivitamin 1 tablet once a day. He was given a prescription for diltiazem 120 mg once a day, Mucinex 600 mg twice a day, levofloxacin 500 mg once a day for 7 days, cefdinir 300 mg twice a day and tapering course of steroids. FINAL DISCHARGE DIAGNOSES: 1. Left lower lobe pneumonia that has failed outpatient oral antibiotic treatment. 2. Left-sided pleuritic chest pain. 3. Type 2 diabetes mellitus. 4. Hypertension. 5. Coronary artery disease, status post PCI with stent deployment. 6. Ulcerative colitis. 7. Probably an element of interstitial lung disease as well as exposed to silica dust. LENA QUEVEDO MD DR: AZALEA/deacon JOB#: [id number] / [id number]
== END 2020-04-04 17:28 | disposition home or self-care (01) | DRG 871 ==
LOC: ER 13:42 → ICU 16:09
PROVIDERS: ADMIT Hospitalist; ATTEND Internal Medicine
DX: A41.9 Sepsis, unspecified organism (principal); J15.9 Unspecified bacterial pneumonia; J44.0 Chronic obstructive pulmonary disease with (acute) lower respiratory infection; J44.1 Chronic obstructive pulmonary disease with (acute) exacerbation; J84.9 Interstitial pulmonary disease, unspecified; K51.90 Ulcerative colitis, unspecified, without complications; Z20.828 Contact with and (suspected) exposure to other viral communicable diseases; E11.65 Type 2 diabetes mellitus with hyperglycemia; I10 Essential (primary) hypertension; I25.10 Atherosclerotic heart disease of native coronary artery without angina pectoris; N28.9 Disorder of kidney and ureter, unspecified; R09.1 Pleurisy; Z82.5 Family history of asthma and other chronic lower respiratory diseases; Z95.5 Presence of coronary angioplasty implant and graft; Z88.1 Allergy status to other antibiotic agents
CPT/HCPCS: 36415; 71045; 71250; 80053; 81001; 83605; 84484; 85007; 85025; 85379; 87040; 93005; 94640; 96365; 96366; 96368; 96375; 99285; J0696; J1956; J2930; J7613; J7030; U0003-CS

== ENCOUNTER → 2020-04-08 | Outpatient (CLI) | payer MEDICARE ==
[2020-04-04 15:15] VITALS: BP 105/69
[~2020-04-08] MED LIST changes: +ASPI325T8 PO; +ENAL20TA PO; +MESA800T9 PO; +METO-239 PO; +MULT-505 PO; +PRAV80TA2 PO
--- NOTE | 2020-04-08 15:44 | RAD ---
Examination: Left Lower Extremity Venous Doppler Ultrasound History: Left lower extremity swelling Comparison: None Procedure: Buckley scale, color flow 2D and spectal waveform analysis images are obtained with and without compression in the area of the common femoral vein, superficial femoral vein - femoral vein junction, main femoral vein (superficial femoral vein) and popliteal vein. Veins of the proximal calf are also imaged. Findings: There is normal duplex flow, color flow and compressibility of all visualized vein segments. No evidence of deep venous thrombus is present. Impression: No evidence of DVT in the left lower extremity venous system. Electronically signed by: Iam Boyer MD (04/08/2020 3:41 PM) [id number]
--- NOTE | 2020-04-08 15:55 | RAD ---
CHEST PA LATERAL History: Reason: SOB, COUGH / Spl. Instructions: / History: Comparison: 03/30/2020 portable chest x-ray exam, 04/03/2020 CT chest without contrast. Findings: Frontal and lateral views of the chest were obtained. The cardiomediastinal silhouette is normal. Pulmonary vasculature is normal. Subtle interstitial thickening at the left lung base is present similar upon correlation with CT of chest without contrast exam. No pleural effusion or pneumothorax is seen. There is no acute bone abnormality. IMPRESSION: No change in left basilar interstitial infiltrates. No new process. Electronically signed by: Florentino Vazquez MD (04/08/2020 3:51 PM) [id number]
[2020-04-08 16:03] LABS: BASO % 0 % (0-3); EOS % 0 % (0-3); HEMATOCRIT 37.3 % (39.0-53.0); HEMOGLOBIN 12.5 g/dL (13.0-17.5); LYMPH # 0.2 x10^3/uL (1.0-4.8); LYMPH % 2 % (24-48); MEAN CORPUSCULAR HEMOGLOBIN 35 pg (25-35); MEAN CORPUSCULAR HGB CONC 34 g/dL (31-37); MEAN CORPUSCULAR VOLUME 106 fL (79-100); MONO # 0.9 x10^3/uL (0.0-1.1); MONO % 6 % (0-9); NEUT # 13.2 x10^3uL (1.8-7.7); NEUT % 92 % (31-73); PLATELET COUNT 290 x10^3/uL (140-400); RED BLOOD COUNT 3.53 x10^6/uL (4.30-5.70); RED CELL DISTRIBUTION WIDTH 14.2 % (11.5-14.5); WHITE BLOOD COUNT 14.4 x10^3/uL (4.0-11.0)
[2020-04-08 16:04] LABS: CALCIUM 7.9 mg/dL (8.5-10.1); CREATININE 1.7 mg/dL (0.7-1.3); GFR 39.3; POTASSIUM 4.2 mmol/L (3.5-5.1)
[2020-04-08 16:31] LABS: % BANDS 6 % (0-9); % LYMPHS 4 % (24-48); % MONOS 8 % (0-10); % SEGS 82 % (35-66); PLT ESTIMATE ADEQUATE (ADEQUATE)
[2020-04-08 16:36] LABS: POLYCHROMASIA SLIGHT
== END | disposition home or self-care (01) ==
LOC: US 15:08
PROVIDERS: ATTEND Specialist
DX: J92.9 Pleural plaque without asbestos (principal); J18.9 Pneumonia, unspecified organism; R60.0 Localized edema
CPT/HCPCS: 36415; 71046; 80048; 85007; 85025; 93971

== ENCOUNTER → 2020-04-30 | Outpatient (CLI) | payer MEDICARE ==
[2020-04-04 15:15] VITALS: BP 105/69
--- NOTE | 2020-04-30 17:32 | RAD ---
INDICATION: Reason: FOLLOW UP PNEUMONIA / Spl. Instructions: / History: COMPARISON: April 08, 2020 FINDINGS: 2 view of chest obtained. Slight decrease in the patchy opacity at the left lung base with some persisting. There is a electronic device projecting over the left lung. Cardiac silhouette is unremarkable. IMPRESSION: * Decreasing patchy opacity at left lung base compared to prior with some persisting. Can be secondary to pneumonia. Electronically signed by: Nino Chatman MD (04/30/2020 5:29 PM) [id number]
== END | disposition home or self-care (01) ==
LOC: RAD 14:29
PROVIDERS: ATTEND Specialist
DX: J18.9 Pneumonia, unspecified organism (principal)
CPT/HCPCS: 71046

== ENCOUNTER → 2020-10-18 | Outpatient (CLI) | payer MEDICARE ==
[~2020-10-18] MED LIST changes: -ENAL20TA PO; +ENAL20TA10 PO
--- NOTE | 2020-10-18 17:44 | RAD ---
EXAM: CHEST 2 VIEWS. HISTORY: Cough. COMPARISON: 04/30/2020. FINDINGS: Frontal and lateral views of the chest are obtained. Mild interstitial and airspace opacities have developed in the left greater than right bases. There i s no pneumothorax or pleural effusion. The heart is not enlarged. There are atherosclerotic calcifica tions of the aorta. IMPRESSION: 1. Mild left greater than right basilar infiltrates. Electronically signed by: Isaura Heard MD (10/18/2020 5:41 PM) [id number]
== END ==
LOC: DXRAD 14:49
PROVIDERS: ATTEND Specialist
DX: R05 Cough (principal); R91.8 Other nonspecific abnormal finding of lung field
CPT/HCPCS: 71046

== ENCOUNTER → 2020-10-22 | Outpatient (CLI) | payer MEDICARE ==
[~2020-10-22] MED LIST changes: +IOHEXOL 350 MG/ML 100 ML VIAL. IV ONE
--- NOTE | 2020-10-22 15:28 | RAD ---
Exam: CT of chest with contrast INDICATION: Chest pain TECHNIQUE: Sequential axial images through the chest obtained following the administration of 75 mL o f Omni 350 IV contrast. Sagittal and coronal reformatted images were reconstructed from the axial jose e a and reviewed. 3-D reformatted images were reconstructed from the axial data and reviewed. Comparisons: Chest x-ray 10/18/2020 FINDINGS: Visualized portions of the thyroid are unremarkable. No enlarged mediastinal lymph nodes are identifi ed. Heart size is normal. No pericardial effusion. Moderate coronary artery calcification. Thoracic aorta has a normal course and caliber. Pulmonary artery is not enlarged. No pulmonary embolus identified w ithin the main, lobar or segmental pulmonary arteries. Airways are patent. Mild bronchial wall thickening is noted. No consolidation. There is patchy ground glass opacity noted in the periphery of the lungs bilaterally particularly at the lung bases. No pneu mothorax. No suspicious lung nodules are No pleural effusion or thickening. Visualized upper abdomen is unremarkable. No suspicious osseous lesions or acute fractures. IMPRESSION: 1. No pulmonary embolus identified within the main, lobar or segmental pulmonary arteries. 2. Patchy areas of groundglass opacity in the periphery of the lungs bilaterally favored to be Infec tious or inflammatory in etiology. Correlate for atypical/viral causes. Exposure: One or more of the following in the visualized dose reduction techniques were utilized for this examination: 1. Automated exposure control 2. Adjustment of the MA and/or KV according to patient size 3. Use of iterative of reconstructive technique Electronically signed by: Israel Pires MD (10/22/2020 3:26 PM) [facility]
== END ==
LOC: CT 14:45
PROVIDERS: ATTEND Specialist
DX: I25.10 Atherosclerotic heart disease of native coronary artery without angina pectoris (principal); R06.02 Shortness of breath; I51.7 Cardiomegaly; R07.9 Chest pain, unspecified
CPT/HCPCS: 71275; Q9967

== ENCOUNTER → 2020-11-07 | Outpatient (CLI) | payer MEDICARE ==
[~2020-11-07] MED LIST changes: -IOHEXOL 350 MG/ML 100 ML VIAL. IV ONE
== END ==
LOC: LAB 10:41
PROVIDERS: ATTEND Internal Medicine Pulmonary Disease
DX: R06.02 Shortness of breath (principal)
CPT/HCPCS: 36415

== ENCOUNTER → 2020-12-10 | Outpatient (CLI) | payer MEDICARE ==
[2020-12-10 09:46] LABS: BASO % 1 % (0-3); EOS # 0.1 x10^3/uL (0.0-0.7); EOS % 3 % (0-3); HEMATOCRIT 33.5 % (39.0-53.0); HEMOGLOBIN 11.3 g/dL (13.0-17.5); LYMPH # 0.7 x10^3/uL (1.0-4.8); LYMPH % 27 % (24-48); MEAN CORPUSCULAR HEMOGLOBIN 35 pg (25-35); MEAN CORPUSCULAR HGB CONC 34 g/dL (31-37); MEAN CORPUSCULAR VOLUME 104 fL (79-100); MONO # 0.4 x10^3/uL (0.0-1.1); MONO % 17 % (0-9); NEUT # 1.2 x10^3uL (1.8-7.7); NEUT % 51 % (31-73); PLATELET COUNT 131 x10^3/uL (140-400); RED BLOOD COUNT 3.23 x10^6/uL (4.30-5.70); RED CELL DISTRIBUTION WIDTH 15.1 % (11.5-14.5); WHITE BLOOD COUNT 2.4 x10^3/uL (4.0-11.0)
[2020-12-10 09:57] LABS: CALCIUM 8.5 mg/dL (8.5-10.1); CREATININE 1.5 mg/dL (0.7-1.3); GFR 45.4; POTASSIUM 3.9 mmol/L (3.5-5.1)
--- NOTE | 2020-12-10 10:11 | RAD ---
XR CHEST 2V History: Reason: PROD COUGH, SOA HX SMOKER X 30, QUIT 20 YRS AGO, COPD / Spl. Instructions: / Histor y: Comparison: Chest x-ray 10/18/2020, 04/30/2020. CT chest 10/22/2020 Technique: PA and lateral chest radiographs. Findings: Left greater than right lower lobe interstitial and hazy opacities similar to September 2020, new from April 2020. Chronic lingular linear atelectasis/scarring. No pleural effusion or pneumothorax. Cardi omediastinal silhouette and pulmonary vasculature are within normal limits. Soft tissues and osseous structures are unremarkable. Impression: 1. Left greater than right lower lobe interstitial and hazy opacities similar to September exam likely represents ongoing infection versus unresolved sequela. Electronically signed by: Aquiles Soto MD (12/10/2020 10:09 AM) [facility]
[2020-12-10 14:42] LABS: % ATYL 2 % (0-0); % BANDS 22 % (0-9); % BASOS 1 % (0-3); % EOS 2 % (0-5); % LYMPHS 27 % (24-48); % MONOS 13 % (0-10); % SEGS 33 % (35-66)
[2020-12-10 14:44] LABS: PLT ESTIMATE DECREASED (ADEQUATE)
== END ==
LOC: DXRAD 08:29
PROVIDERS: ATTEND Specialist
DX: J44.9 Chronic obstructive pulmonary disease, unspecified (principal); J18.9 Pneumonia, unspecified organism; Z87.891 Personal history of nicotine dependence
CPT/HCPCS: 36415; 71046; 80048; 85007; 85025; 87040

== ENCOUNTER → 2020-12-16 | Outpatient (CLI) | payer MEDICARE ==
--- NOTE | 2020-12-16 14:22 | RAD ---
EXAM: CT Chest without IV contrast INDICATION: Reason: FOLLOW UP / Spl. Instructions: / History: TECHNIQUE: Multi-detector row CT images were acquired from the thoracic inlet through the upper abdo men without the use of IV contrast. Sagittal and coronal images were acquired from the transaxial jose e a. All CT scans performed at this facility utilize dose optimization techniques as appropriate to the exam, including the following: Automated exposure control and adjustment of the mA and/or KV accordi ng to patient size (this includes techniques or standardized protocols for targeted exams where dose is indication/reason for exam). COMPARISON: CT pulmonary angiogram of 10/22/2020 FINDINGS: The absence of IV contrast limits evaluation of soft tissue pathology. CARDIOVASCULAR: Dense coronary calcifications. Normal thoracic aortic caliber. Normal heart size. MEDIASTINUM & SHAUN: No adenopathy or masses. LUNGS: Diffuse subpleural reticular densities involving both upper and lower limbs in the right middl e lobe with mild distortion. Lower lobes are affected to the greatest extent. There is evidence of ea rly honeycombing, best appreciated on the sagittal reformatted images (image 122 of series 5 for exam ple).. Mild tubular bronchiectasis. PLEURAL SPACE: No pleural effusions or pneumothorax. OSSEOUS & SOFT TISSUE: Unremarkable ABDOMEN: The visualized portions of the upper abdomen are unremarkable. IMPRESSION: Findings suggesting early changes of pulmonary fibrosis in a primarily lower lobe predominant distrib ution but affecting all lobes. These are nonspecific and clinical correlation with follow-up imaging is recommended. Electronically signed by: Francisco Montano MD (12/16/2020 2:19 PM) [id number]
== END ==
LOC: CT 08:49
PROVIDERS: ATTEND Internal Medicine Pulmonary Disease
DX: J47.9 Bronchiectasis, uncomplicated (principal); J84.10 Pulmonary fibrosis, unspecified
CPT/HCPCS: 71250

== ENCOUNTER → 2021-02-13 | Outpatient (CLI) | payer MEDICARE ==
--- NOTE | 2021-02-13 14:58 | RAD ---
EXAM: Right wrist, 3 views. HISTORY: Pain. COMPARISON: None. FINDINGS: 3 views of the right wrist are obtained. There is severe first carpometacarpal joint space narrowing with subchondral sclerosis, subchondral cyst formation and spurring. There are vascular veronika cifications. There is a small ossicle or calcification along the dorsal aspect of the carpal bones. T here is a suspected subchondral cyst involving the capitate. There is also lucency within the lunate which may be projectional or due to a cyst. There is no convincing osteonecrosis. IMPRESSION: 1. Severe first carpal metacarpal joint osteoarthritis. 2. No acute osseous finding. Electronically signed by: Nilda Jaramillo MD (02/13/2021 2:56 PM) [id number]
== END ==
LOC: DXRAD 14:01
PROVIDERS: ATTEND Specialist
DX: M19.031 Primary osteoarthritis, right wrist (principal)
CPT/HCPCS: 73110

== ENCOUNTER → 2021-05-09 | Outpatient (CLI) | payer MEDICARE ==
--- NOTE | 2021-05-09 10:11 | RAD ---
XR CHEST 2V 05/09/2021 Reason: SHORT OF BREATH Comparison: Chest radiograph December 10, 2020 Technique: Frontal and lateral radiographs of the chest Findings: There is similar reticular, interstitial opacities at the lower lung zones bilaterally. No pleural ef fusion or pneumothorax. Cardiac mediastinal silhouette is stable. The pulmonary vascular distribution . The osseous structures are intact. Impression: Stable chest radiographs with nonspecific reticular opacities bibasilarly. Electronically signed by: Chris Aguirre (05/09/2021 10:08 AM) [id number]
== END ==
LOC: RAD 08:31
PROVIDERS: ATTEND Internal Medicine Cardiovascular Disease
DX: J84.89 Other specified interstitial pulmonary diseases (principal)
CPT/HCPCS: 71046

== ENCOUNTER → 2021-07-29 | Outpatient (CLI) | payer MEDICARE ==
--- NOTE | 2021-07-29 12:47 | RAD ---
EXAM: CT Chest without IV contrast CLINICAL HISTORY: Reason: ABNORMAL CT / Spl. Instructions: HX OF COVID?EARLY 2020, PREV SMOKER 30+ YE ARS / History: COMPARISON: CT 12/16/2020 TECHNIQUE: CT of the chest without intravenous contrast. Axial, coronal and sagittal reformatted imag es were generated. ---PQRS compliance statement - One or more of the following individualized dose reduction techniques were utilized for this study: 1. Automated exposure control 2. Adjustment of the mA and/or kV according to patient size 3. Use of iterative reconstruction technique--- FINDINGS: Lack of intravenous contrast limits evaluation of solid organs, vasculature, and lymph nodes. Chest: Heart is not enlarged. Coronary calcifications are seen. No pericardial effusion. No pleural effusion . No pneumothorax. No axillary lymphadenopathy. No mediastinal or hilar lymphadenopathy. Groundglass opacities with interstitial prominence and reticular opacities in the lower lungs, border line improved compared to 12/16/2020. No suspicious lung nodule or mass is seen. Visualized Upper abdomen: Unremarkable Bones: No aggressive osseous lesion is seen. IMPRESSION: Reticular interstitial opacities with groundglass prominence greatest in the lower lungs bilaterally are again seen although groundglass opacities are mildly improved on today's examination. Findings ar e suspicious for interstitial lung disease/pulmonary fibrosis. Electronically signed by: Irvin Ross MD (07/29/2021 12:45 PM) [place] [id number]
== END ==
LOC: CT 09:39
PROVIDERS: ATTEND Internal Medicine Pulmonary Disease
DX: R91.8 Other nonspecific abnormal finding of lung field (principal); I25.10 Atherosclerotic heart disease of native coronary artery without angina pectoris
CPT/HCPCS: 71250

== ENCOUNTER → 2021-08-22 | Outpatient (CLI) | payer MEDICARE ==
--- NOTE | 2021-08-22 12:32 | RAD ---
XR CHEST 2V History: Reason: COPD / Spl. Instructions: / History: Comparison: May 09, [address] July 29, 2021 Findings: Bibasilar reticular opacities, left greater than right, unchanged. No pleural effusion. No pneumothor ax. Normal heart size. Impression: 1. Bibasilar reticular opacities, left greater than right, unchanged. No new consolidation. Electronically signed by: Uri Medrano DO (08/22/2021 12:30 PM) [id number]
== END ==
LOC: RAD 11:44
PROVIDERS: ATTEND Specialist
DX: R91.8 Other nonspecific abnormal finding of lung field (principal); J44.9 Chronic obstructive pulmonary disease, unspecified
CPT/HCPCS: 71046